=== PATIENT | female | born 1935 | race Caucasian/White ===

== ENCOUNTER → 2023-07-01 13:06 | Outpatient (REF) | payer OTHER, SELFPAY | LOC: WDC 13:06 | PROVIDERS: ATTENDING PHYSICIAN Internal Medicine | DX: M81.0 Age-related osteoporosis without current pathological fracture (principal); Z13.820 Encounter for screening for osteoporosis; Z12.31 Encounter for screening mammogram for malignant neoplasm of breast | CPT/HCPCS: 77063; 77067; 77080 ==

== ENCOUNTER → 2024-02-23 09:34 | Outpatient (REF) | payer OTHER, SELFPAY | LOC: RAD 09:34 | PROVIDERS: ATTENDING PHYSICIAN Nurse Practitioner Family | DX: L89.304 Pressure ulcer of unspecified buttock, stage 4 (principal) | CPT/HCPCS: 72110 ==

== ENCOUNTER → 2024-03-01 08:05 | Outpatient (REF) | payer OTHER, SELFPAY | LOC: WOUND 08:05 | PROVIDERS: ATTENDING PHYSICIAN Surgery; FAMILY PHYSICIAN Internal Medicine | DX: L89.154 Pressure ulcer of sacral region, stage 4 (principal); I44.7 Left bundle-branch block, unspecified; N18.30 Chronic kidney disease, stage 3 unspecified; I12.9 Hypertensive chronic kidney disease with stage 1 through stage 4 chronic kidney disease, or unspecified chronic kidney disease | CPT/HCPCS: 11042; 99204 ==

== ENCOUNTER → 2024-03-07 11:00 | Outpatient (REF) | payer OTHER, SELFPAY | LOC: WOUND 11:00 | PROVIDERS: ATTENDING PHYSICIAN Surgery; FAMILY PHYSICIAN Internal Medicine | DX: L89.154 Pressure ulcer of sacral region, stage 4 (principal); I44.7 Left bundle-branch block, unspecified; N18.30 Chronic kidney disease, stage 3 unspecified; I12.9 Hypertensive chronic kidney disease with stage 1 through stage 4 chronic kidney disease, or unspecified chronic kidney disease | CPT/HCPCS: 11042 ==

== ENCOUNTER → 2024-03-14 13:19 | Outpatient (REF) | payer OTHER, SELFPAY | LOC: WOUND 13:19 | PROVIDERS: ATTENDING PHYSICIAN Surgery; FAMILY PHYSICIAN Internal Medicine | DX: L89.154 Pressure ulcer of sacral region, stage 4 (principal); I44.7 Left bundle-branch block, unspecified; I10 Essential (primary) hypertension; N18.30 Chronic kidney disease, stage 3 unspecified; I12.9 Hypertensive chronic kidney disease with stage 1 through stage 4 chronic kidney disease, or unspecified chronic kidney disease | CPT/HCPCS: 11042 ==

== ENCOUNTER → 2024-04-04 10:25 | Outpatient (REF) | payer OTHER, SELFPAY | LOC: WOUND 10:25 | PROVIDERS: ATTENDING PHYSICIAN Surgery; FAMILY PHYSICIAN Internal Medicine | DX: L89.154 Pressure ulcer of sacral region, stage 4 (principal); I44.7 Left bundle-branch block, unspecified; N18.30 Chronic kidney disease, stage 3 unspecified; I12.9 Hypertensive chronic kidney disease with stage 1 through stage 4 chronic kidney disease, or unspecified chronic kidney disease | CPT/HCPCS: 11042 ==

== ENCOUNTER → 2024-04-11 10:49 | Outpatient (REF) | payer OTHER, SELFPAY | LOC: WOUND 10:49 | PROVIDERS: ATTENDING PHYSICIAN Surgery; FAMILY PHYSICIAN Internal Medicine | DX: L89.154 Pressure ulcer of sacral region, stage 4 (principal) | CPT/HCPCS: 99213 ==

== ENCOUNTER → 2024-04-29 14:35 | Outpatient (REF) | payer OTHER, SELFPAY | LOC: RCS 14:35 | PROVIDERS: ATTENDING PHYSICIAN Internal Medicine Cardiovascular Disease; FAMILY PHYSICIAN Internal Medicine | DX: I44.7 Left bundle-branch block, unspecified (principal) | CPT/HCPCS: 93306 ==